=== PATIENT | male | born 1975 | race African-American/Black ===

== ENCOUNTER 2016-09-07 08:39 | Emergency (ER) | payer OTHER ==
[~2016-09-07] VITALS: Ht 177.8 cm; Wt 75.8 kg
[~2016-09-07 08:39] MED LIST: ANAPROX DS550 M1 PO
[2016-09-07 10:20] LABS: EOSINOPHIL (%) 0.1 % (0-5); HEMATOCRIT 45.1 % (38.0-50.0); IMMATURE GRANULOCYTE (%) 0.2 % (0.0-0.7); IMMATURE GRANULOCYTE COUNT 0.2 K/uL; LYMPHOCYTE COUNT 1.5 K/uL (1.0-2.8); MCH 30.2 PG (29.0-34.0); MCHC 36.6 G/DL (30.0-36.0); MCV 82.6 FL (86-99); MEAN PLAT.VOLUME 9.3 uM^3 (9.0-12.4); MONOCYTE (%) 6.7 % (3-12); MONOCYTE COUNT 0.7 K/uL (0-0.8); NEUTROPHIL (%) 79.3 % (45-76); NEUTROPHIL COUNT 8.7 K/uL (1.8-6.4); PLATELET COUNT 210 K/uL (156-360); RBC DIS.WIDTH-CV 13.1 % (11.8-14.6); RBC DIS.WIDTH-SD 39.4 % (39-53); RED BLOOD COUNT 5.46 M/uL (4.00-5.50)
[2016-09-07 10:34] LABS: CHLORIDE 105 mEq/L (99-109); POTASSIUM 3.9 mEq/L (3.7-5.4); SODIUM 139 mEq/L (136-147)
[2016-09-07 10:36] LABS: GLUCOSE 72 mg/dL (70-99)
[2016-09-07 10:37] LABS: ANION GAP 12 MEQ/L (2-14)
[2016-09-07 10:38] LABS: TOTAL BILIRUBIN 1.1 mg/dL (0.0-1.0)
[2016-09-07 10:39] LABS: ALKALINE PHOSPHATASE 81 IU/L (3-129)
[2016-09-07 10:40] LABS: GFR ESTIMATE (CALCULATED) > 59 mL/min/
[2016-09-07 10:41] LABS: DIRECT BILIRUBIN 0.4 mg/dL (0.0-0.3); UREA NITROGEN (BUN) 14 mg/dL (9-23)
[2016-09-07 11:12] LABS: SERUM ETHYL ALCOHOL 35 mg/dL
[2016-09-07 11:23] LABS: AHBS INDEX 0; HEPATITIS B SURFACE ANTIBODY Nonreactive; HPCA INDEX 0.28
[2016-09-07 11:25] LABS: ADD MIUA? YES; BILIRUBIN NEGATIVE; BLOOD MODERATE; COLOR YELLOW ((YELLOW)); GLUCOSE (STRIP) NEGATIVE; KETONES 5; LEUKOCYTES NEGATIVE; NITRITE NEGATIVE; PROTEIN (STRIP) 30; SPECIFIC GRAVITY 1.013 (1.000-1.030); UROBILINOGEN 0.2 MG/DL (0.2-1.0)
[2016-09-07 11:30] LABS: BACTERIA NONE SEEN /HPF; EPITHELIAL CELLS RARE /HPF; MUCUS TRACE /LPF; RED BLOOD CELLS 0-5 /HPF (0-5); UCUL ADDED? NO; WHITE BLOOD CELLS 0-5 /HPF (0-5)
[2016-09-07 11:38] LABS: AMPHETAMINE PRESUMPTIVE POSITIVE (500 ng/mL); BARBITURATES NEGATIVE (200 ng/mL); BENZODIAZEPINES NEGATIVE (150 ng/mL); COCAINE NEGATIVE (150 ng/mL); INTERNAL CONTROLS VALID? YES; METHADONE NEGATIVE (200 ng/mL); METHAMPHETAMINE PRESUMPTIVE POSITIVE (500 ng/mL); OPIATES (MORPHINE) NEGATIVE (100 ng/mL); OXYCODONE NEGATIVE (100 ng/mL); PHENCYCLIDINE NEGATIVE (25 ng/mL); PROPOXYPHENE NEGATIVE (300 ng/mL); THC CANNABINOIDS PRESUMPTIVE POSITIVE (50 ng/mL); TRICYCLIC ANTIDEPRESSANTS NEGATIVE (300 ng/mL)
[2016-09-07 11:39] LABS: ADD MEDTOX COMMENT Y
[2016-09-07] MEDS ORDERED: AUGMENTIN875 MG PO (12:26)
[2016-09-07 12:45] VITALS: BP 106/88
== END 2016-09-07 12:55 | disposition home or self-care (01) ==
LOC: EME 08:39
PROVIDERS: Emergency Medicine
PROC: 3E0234Z Introduction of Serum, Toxoid and Vaccine into Muscle, Percutaneous Approach (ICD-10-PCS; principal; 2016-09-07)
DX: S06.0X0A Concussion without loss of consciousness, initial encounter (principal); S41.051A Open bite of right shoulder, initial encounter; S41.052A Open bite of left shoulder, initial encounter; S41.151A Open bite of right upper arm, initial encounter; S60.512A Abrasion of left hand, initial encounter; Y04.2XXA Assault by strike against or bumped into by another person, initial encounter; Y04.1XXA Assault by human bite, initial encounter; Y07.01 Husband, perpetrator of maltreatment and neglect; Y92.009 Unspecified place in unspecified non-institutional (private) residence as the place of occurrence of the external cause; Y92.481 Parking lot as the place of occurrence of the external cause; Z20.5 Contact with and (suspected) exposure to viral hepatitis; Z23 Encounter for immunization; F17.200 Nicotine dependence, unspecified, uncomplicated; F43.0 Acute stress reaction
CPT/HCPCS: 70486; 80048; 80076; 81003; 84999; 85025; 86706; 86803; 90839; 99281; 99283; G0480